=== PATIENT | female | born 1995 ===

== ENCOUNTER 2024-07-22 15:16 | Outpatient (CLI) | payer OTHER | END 2024-07-22 15:17 | disposition home or self-care (01) | LOC: PRENATAL 15:16 | PROVIDERS: ATTEND Obstetrics & Gynecology Maternal & Fetal Medicine | DX: O44.00 Complete placenta previa NOS or without hemorrhage, unspecified trimester (principal); Z3A.22 22 weeks gestation of pregnancy ==

== ENCOUNTER 2024-09-27 15:17 | Outpatient (CLI) | payer OTHER | END 2024-09-27 15:20 | disposition home or self-care (01) | LOC: PRENATAL 15:17 | DX: O26.849 Uterine size-date discrepancy, unspecified trimester (principal); O36.8199 Decreased fetal movements, unspecified trimester, other fetus; Z3A.31 31 weeks gestation of pregnancy ==